=== PATIENT | female | born 1960 | race Caucasian/White ===

== ENCOUNTER 2023-07-22 20:35 | Inpatient (IN) | payer OTHER, SELFPAY ==
[2023-07-22 13:34] VITALS: BP 112/63
[2023-07-22 13:42] VITALS: BMI 28.7
--- NOTE | 2023-07-22 14:43 | ED.GENMED ---
History of Present Illness
General
Chief Complaint: Musculo-Skeletal Complaint
Source: family
Exam Limitations: dementia
Time Seen by Provider: 07/22/23 14:29
Travel History
Have you had any contact with someone who has COVID-19?: No
Do you have any symptoms of coronavirus? Fever > 100 degrees, chills, cough, shortness of breath, sore throat, loss of taste or smell, muscle aches, or headache?: No
History of Present Illness
History of Present Illness:
62-year-old female with known history of dementia presents with a gradual change in mental status with increased confusion and weakness and also appears to have left leg pain over the last 3 days. She did have a fall a week ago's. However there
was no known fall or trauma related to the recent left leg issue. Patient does not add history.
Past History
Past History
ED Past Medical History: Cancer (Breast cancer) and Other (Dementia)
ED Past Surgical History: Other (Mastectomy with implants)
Social History
Tobacco: Non-smoker
Alcohol: None
Review of Systems
Review of Systems
Unable to obtain full review of systems at this time due to: dementia
All Other Systems: Not applicable
Phy Exam
Physical Exam
Physical Exam:
GENERAL: In no distress upon entering the room. Will at times follow simple commands. However would not say her name or talk when commanded
EYE: Orbits normal.
NECK: Supple, no significant adenopathy.
ENT: Pharynx without erythema
CARDIAC: Regular rate and rhythm without any obvious murmurs.
LUNGS: Clear breath sounds,normal
ABDOMEN: Soft, without focal tenderness or distention
NEUROLOGICAL: Alert. Grossly nonfocal. Will follow simple commands
SKIN: Warm and dry, no rash or lesion, no discoloration, skin intact.
MUSCULOSKELETAL: Slight shortening of the left leg and appears to have tenderness to the leg although very difficult to localize. Seems mostly left foot. No obvious pain with hip rotation. No knee swelling no deformity no ecchymosis or abrasion.
PSYCH: Flat affect
Course
Orders/Labs/Results
Orders:
Orders
07/22/23 14:43
CT Head W/o Iv Contrast Urgent
Comment:
Reason For Exam: Mild dementia. Change in mental status
Cardiac Monitoring- Treatment ONCE
IV Insert/Care/Rem.- Treatment PRN
Straight cath- Treatment ONCE
0.9% Sodium Chloride 500 ml [Nss] 500 ml IV BOLUS
Pulse Ox/cont/shift [RESP] Stat
Quantity: 1
07/22/23 14:44
Femur, Left 2 View [CR Femur - Left Min 2 Vw] Urgent
Comment:
Reason For Exam: Nontraumatic nonlocalizing left leg pain
Foot, Left 3 View [CR Foot - Left Min 3 Views] Urgent
Comment:
Reason For Exam: Nontraumatic nonlocalizing left leg pain
Hip, Left 2-3 Views [CR Hip - LT w/wo Pel 2-3 Vw*] Urgent
Comment:
Reason For Exam: Nontraumatic nonlocalizing left leg pain
Include a pelvis x-ray?: Yes
Tibia/Fibula, Left 2 View [CR Leg Tibia/fibula Left 2 Vw] Urgent
Comment:
Reason For Exam: Nontraumatic nonlocalizing left leg pain
07/22/23 14:45
US Periph Venous LOWER Ext LT Urgent
Comment:
Reason For Exam: Nontraumatic left leg pain
07/22/23 14:46
CXR2 [CR Chest - 2 Views ] Urgent
Comment:
Reason For Exam: Recent left sided chest pain after fall
07/22/23 15:13
Basic Metabolic Panel Urgent
Complete Blood Count/With Diff Urgent
07/22/23 15:19
Urinalysis Reflex To Culture Urgent
Date Specimen was Collected: 07/22/23
Time Specimen was Collected: 15:14
Abnormal Lab Results
07/22/23 07/22/23
15:13 15:19
Neutrophils % 75.6 H %
(42.2-75.2)
Lymphocytes % 15.9 L %
(20.5-51.1)
Glucose 127 H mg/dl
(70-99)
Urine Bilirubin 1+ A
(Negative)
Urine Urobilinogen 2+ A
(Neg - 1+)
07/22/23 15:13
07/22/23 15:13
Vital Signs
Initial and Last Documented VS:
Initial Vital Signs
Temp Pulse Resp BP Pulse Ox
98.7 F 73 16 112/63 96
07/22/23 13:34 07/22/23 13:34 07/22/23 13:34 07/22/23 13:34 07/22/23 13:34
Last Documented Vital Signs
Temp Pulse Resp BP Pulse Ox
98.7 F 68 14 92/69 96
07/22/23 13:34 07/22/23 17:30 07/22/23 17:30 07/22/23 15:16 07/22/23 17:30
MDM/Problems Addressed
Differential Diagnosis Includes:
Appears to have 2 issues #1 is this gradual change in mental status. May all be related to her dementia. However I have to consider UTI electrolyte issue etc. Problem #2 is this left leg pain very difficult to localize. There is no obvious
deformity ecchymosis swelling etc. However she does seem to be in more pain when touching the foot nonetheless difficult. Also seems slightly shortened. DVT would also be considered
*Radiology
Radiology exam reviewed: preliminary read by ED provider (Negative x-rays), radiology read reviewed (neg) and other (Negative x-rays and negative left leg ultrasound)
*Pulse Oximetry
Patient hypoxic: no
*Critical Care Note
Total Time (30-74mins, 75-104mins- exclusive of procedures): Not Applicable
Update Note
Update Note:
Patient unable to ambulate. ADL issues. Clearly warrants admission for further care and possible placement issues
ED Attending Note
-
Portions of this chart may have been created with voice recognition software.� Occasional wrong word or��sound alike� substitutions may have occurred due to the inherent limitations of voice recognition software.
Discharge Plan
Departure
Patient Disposition: Admit
Date of Disposition: 07/22/23
Time of Disposition: 19:35
Presentation/result/management discussed w/ accepting MD/DO: Hospitalist
Discharge Problem:
Progressive ambulation issues, Left leg pain, Dementia
Prescriptions:
No Action
lorazepam 0.5 mg tablet
0.5 mg PO BID PRN (Reason: Anxiety) Qty: 10 0RF
Referrals:
Ziyad Benz DO [Family Provider] -
Interventions
Interventions:
*Risk Screen - Suicide Last Done: 07/22/23 13:37
*General Assessment Last Done: 07/22/23 13:37
*Neglect/Abuse Screening Last Done: 07/22/23 13:37
ED- Fall Risk Assessment Last Done: 07/22/23 13:42
*ED COVID-19 Vaccine History Last Done: 07/22/23 13:37
ED-Musculoskeletal Assessment Last Done: 07/22/23 13:37
Discharge Date and Time
Print Language: [place]
[2023-07-22] MEDS: NSS 500 IV (15:14)
[2023-07-22 15:16] VITALS: BP 92/69
[2023-07-22 15:28] LABS: Urine Albumin Negative (Neg - Trace); Urine Bilirubin 1+ (Negative); Urine Character Clear (Clear); Urine Color Yellow; Urine Glucose Negative (Negative); Urine Ketone Negative (Negative); Urine Leukocyte Negative (Negative); Urine Nitrite Negative (Negative); Urine Occult Blood Negative (Negative); Urine Urobilinogen 2+ (Neg - 1+)
[2023-07-22 15:30] LABS: % Basophils 0.8 % (0-2); % Eosinophils 0.3 % (0-6); % Immature Granulocytes 0.3 % (0-0.5); % Lymphocytes 15.9 % (20.5-51.1); % Monocytes 7.1 % (1.7-9.3); % Neutrophils 75.6 % (42.2-75.2); Absolute Basophils 0.1 10^3/uL (0-0.2); Absolute Lymphocytes 1.2 10^3/uL (1.2-3.4); Absolute Monocytes 0.6 10^3/uL (0.1-0.6); Absolute Neutrophils 5.9 10^3/uL (1.4-6.5); Hematocrit 44.4 % (37.0-47.0); Hemoglobin 14.7 g/dL (12.0-16.0); Mean Corp Hgb Conc. 33.1 g/dL (33.0-37.0); Mean Corpuscular Hgb 28.9 pg (27.0-31.0); Mean Corpuscular Volume 87.4 fL (81.0-99.0); Mean Platelet Volume 10.3 fL (7.4-10.4); Nucleated Red Blood Cells % 0 %; Platelet Count 247 10^3/uL (130-400); Red Blood Cell Count 5.08 10^6/uL (4.20-5.40); Red Cell Dist. Width 12.2 % (11.5-14.5); White Blood Cell Count 7.8 10^3/uL (4.8-10.8)
[2023-07-22 15:40] LABS: Blood Urea Nitrogen 17 mg/dl (7-17); Calcium 9.7 mg/dl (8.4-10.2); Carbon Dioxide 28 mmol/L (22-30); Chloride 102 mmol/L (98-107); Estimated Creatinine Clearance 71 ml/min; Glucose 127 mg/dl (70-99); Potassium 4.1 mmol/L (3.5-5.1); Sodium 137 mmol/L (135-145); eGFR > 60.00
[2023-07-22 18:38] VITALS: BP 104/69
[2023-07-22 19:00] VITALS: BP 121/87
--- NOTE | 2023-07-22 20:11 | HPS.HSE ---
Family Physician
-
Family Physician: Ziyad Benz
Chief Complaint
-
Change of mental status
History of Present Illness
62-year-old woman with a known history of dementia, who has had a gradual progressive change in mental status with increased confusion and weakness, and also now with left leg pain over the last 3 days. She did have a fall a week ago. There was no
known fall or trauma related to the recent left leg issue. Patient does not add history. During exam she is confused and twitches all over. She has seen a neurologist as an outpatient.
Medical History
Past Medical History
Past Medical History: Reports Other
Additional Past Medical History:
Breast cancer
Dementia
Mastectomy with implants
Past Surgical History: Reports Other
Additional Past Surgical History:
mastectomy
Social History
Unable to obtain full social history at this time due to: Dementia
Tobacco: Non-smoker
Alcohol: None
Personal:
Living: With Family
Family History
Family History: Not pertinent
Allergies / Home Medications
Allergies reflects when Allergies were last updated in [employer].
Home Medications with original date entered in [employer]
Allergy/Medication List:
Allergies
Allergy/AdvReac Type Severity Reaction Status Date / Time
Penicillins Allergy Unknown Verified 12/10/22 15:08
Home Medications
donepezil 10 mg tablet 10 mg PO HS 07/22/23
ibuprofen 200 mg tablet (Advil) 400 mg PO BIDPRN PRN mild pain 07/22/23
quetiapine 25 mg tablet 25 mg PO HS 07/22/23
sertraline 100 mg tablet 200 mg PO HS 07/22/23
Review of Systems
-
Unable to obtain full review of systems at this time due to: Dementia
History Source: Patient
Physical Exam
Vital Signs
Vital Signs
Temp Pulse Resp BP Pulse Ox
98.7 F 79 11 121/87 96
07/22/23 13:34 07/22/23 19:00 07/22/23 19:00 07/22/23 19:00 07/22/23 17:30
Physical Exam
General: Well Developed, Well Nourished, Appears in Distress and Pain
HEENT: Moist mucous membranes, Nose Appears Normal and Ears Appear Normal
Respiratory: Clear
Cardiac: S1/S2 and Regular Rhythm
GI: Soft, Non Tender and Non Distended
Musculoskeletal: No Clubbing, No Cyanosis and No Edema
Skin: Warm and Dry; No Rash or Jaundice
Neuro: Awake, Alert and Tremors; No Oriented or AO x 3
Psych: Calm and Confused
Laboratory Results
-
07/22/23 15:13
07/22/23 15:13
Data Reviewed
-
Lab Data: Labs Reviewed by me
Impression/Plan
-
IMPRESSION:
62 woman with dementia, now with progressively worsening change of mental status. No obvious explanation found in ED.
PLAN:
1. Worsening progressive change of mental status.
Observe overnight
Neuro consult in am
Regardless of cause, placement upon discharge likely needed.
Full code
VCD for DVTP
[2023-07-22 21:30] VITALS: BP 135/75; BMI 30.3
[2023-07-22 21:50] LABS: Erythrocyte Sed Rate 27 mm/hour (0-20)
[2023-07-22 23:00] VITALS: BP 94/53
[2023-07-22] MEDS: ARICEPT 10 MG PO (23:12)
[2023-07-22] MEDS: ZOLOFT 200 MG PO (23:12)
[2023-07-22] MEDS: SEROQUEL 25 MG PO (23:13)
[2023-07-22 23:21] LABS: TSH Reflex To Free T4 1.74 uIU/ml (0.47-4.68)
[2023-07-23 00:34] LABS: Folate 5.7 ng/ml (2.76-20); Vitamin B12 451 pg/ml (239-931)
--- NOTE | 2023-07-23 03:45 | PTCARENOTE ---
Pt admitted to unit from ED. Pt pulled over into bed by nursing staff. Spouse at bedside assisted with admission. AAXO1. Pt's left foot is tender to palpation. Bed alarm in place. Pt oriented to room has call woodruff in reach. Education needs
reinforcement. Plan of care ongoing.
[2023-07-23 07:33] VITALS: BP 166/71
[2023-07-23 07:56] LABS: Hematocrit 38.5 % (37.0-47.0); Hemoglobin 13.2 g/dL (12.0-16.0); Mean Corp Hgb Conc. 34.3 g/dL (33.0-37.0); Mean Corpuscular Hgb 29.5 pg (27.0-31.0); Mean Corpuscular Volume 86.1 fL (81.0-99.0); Mean Platelet Volume 10.5 fL (7.4-10.4); Platelet Count 240 10^3/uL (130-400); Red Blood Cell Count 4.47 10^6/uL (4.20-5.40); White Blood Cell Count 7.2 10^3/uL (4.8-10.8)
[2023-07-23 08:21] LABS: Blood Urea Nitrogen 14 mg/dl (7-17); Calcium 9.2 mg/dl (8.4-10.2); Carbon Dioxide 23 mmol/L (22-30); Chloride 104 mmol/L (98-107); Creatine Phosphokinase 393 U/L (30-135); Estimated Creatinine Clearance 108 ml/min; Glucose 106 mg/dl (70-99); Magnesium 2.1 mg/dl (1.6-2.3); Potassium 3.9 mmol/L (3.5-5.1); Sodium 134 mmol/L (135-145); eGFR > 60.00
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
[2023-07-23 08:48] LABS: TSH 1.72 uIU/ml (0.47-4.68)
[2023-07-23 09:07] LABS: Vitamin B12 442 pg/ml (239-931)
[2023-07-23 11:48] LABS: COVID-19 Antigen Negative (Negative)
--- NOTE | 2023-07-23 12:09 | W.PN.HOSP.TC ---
Today's Communication/Plan
-
neuro recs
f/u uric acid
pt/ot - anticipate placement
Assessment / Plan
Assessment / Plan
Physical Exam
General: Well Developed, Well Nourished, Appears in Distress and Pain
HEENT: Moist mucous membranes, Nose Appears Normal and Ears Appear Normal
Respiratory: Clear
Cardiac: S1/S2 and Regular Rhythm
GI: Soft, Non Tender and Non Distended
Musculoskeletal: No Clubbing, No Cyanosis and No Edema
Skin: Warm and Dry; No Rash or Jaundice
Neuro: Awake, Alert and Tremors; No Oriented or AO x 3
Psych: Calm and Confused
62 woman with dementia, now with progressively worsening change of mental status. No obvious explanation found in ED. Also had left leg pain - sustained fall last week; no obvious fx
PLAN:
#Worsening progressive change of mental status.
Neuro consulted
no obvious infection, regardless f/u cultures; ua, flu, covid is neg
-will need continued outpatient eval
#left leg pain
-curbsided ortho if any evidence of fx - none seen consistent with hip fx
-pain control
-PT/OT- will need placement most likely
-left toe swelling - appears to be osteophyte on cxr
-f/u uric acid
-nsaids ordered
Full code
VCD for hsq
Anticipated Discharge: Within 24 hours
Subjective/Interval History
-
Date of Service: July 23, 2023
patient confused, no acute events
Objective Data
-
Labs:
Laboratory Results
07/23/23
06:38
WBC 7.2
Hgb 13.2
Hct 38.5
Plt Count 240
Sodium 134 L
Potassium 3.9
Chloride 104
Carbon Dioxide 23
BUN 14
Creatinine 0.6
Glucose 106 H
Calcium 9.2
Vital Signs:
Vital Signs
Temp Pulse Resp BP Pulse Ox
98.7 F 75 16 166/71 98
07/23/23 07:33 07/23/23 07:33 07/23/23 07:33 07/23/23 07:33 07/23/23 07:33
Review of Systems
-
Unable to obtain full review of systems at this time due to: Acuity
History Source: Patient
All other systems: Not reviewed unless documented
Data Reviewed
-
Diagnostic Radiology: Image personally visualized and interpreted and Report Reviewed by me
Ultrasound: Report Reviewed by me
Labs: Labs Reviewed by me
[2023-07-23] MEDS: MOTRIN 400 MG PO (13:56)
[2023-07-23 15:25] VITALS: BP 104/57
[2023-07-23] MEDS: HEPARIN 5000 UNITS SC ×2 (17:42→23:19)
[2023-07-23] MEDS: ARICEPT 10 MG PO (22:03)
[2023-07-23] MEDS: SEROQUEL 25 MG PO (22:04)
[2023-07-23] MEDS: ZOLOFT 200 MG PO (22:04)
[2023-07-23 23:08] VITALS: BP 121/87
--- NOTE | 2023-07-24 05:53 | W.PN.HOSP.TC ---
Today's Communication/Plan
-
Pain Control
PT/OT
cont home sertraline Seroquel
discharge planning SNF rehab
Assessment / Plan
Assessment / Plan
Physical Exam
General: Well Developed, Well Nourished, Appears in Distress and Pain
HEENT: Moist mucous membranes, Nose Appears Normal and Ears Appear Normal
Respiratory: Clear
Cardiac: S1/S2 and Regular Rhythm
GI: Soft, Non Tender and Non Distended
Musculoskeletal: No Clubbing, No Cyanosis and No Edema
Skin: Warm and Dry; No Rash or Jaundice
Neuro: Lethargic but arousable and intermittent Tremors; not oriented
Psych: Calm Confused some visual auditory hallucinations noted (patient talking to person not present in room)
62 woman with early onset dementia, now with progressively worsening change of mental status. No obvious explanation found in ED. Also had left leg pain - sustained fall last week; no obvious fx
PLAN:
#Worsening progressive change of mental status.
#Possible worsening dementia,
#Hallucinations
Neuro consult appreciated
no obvious signs infection, CXR unremarkable
monitor off abx, follow cultures; ua neg for UTI, flu covid neg
Psych eval appreciated pt to cont with home sertraline seroquel and outpt follow up with neurologist at [facility]
#left leg pain suspect osteoarthritis
-hospitalist discussed with ortho, no evidence fx noted on imaging
-Venous Duplex neg DVT LLE
-Tibula/Fibula XR notes Calcaneal spur otherwise unremarkable exam
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
-Lt Foot XR notes mild tibiotalar osteoarthritis minimal first MTP joint osteoarthritis
-pain control
-PT/OT appreciated SNF rehab
-uric acid wnl
-NSAID prn
Full code
DVT ppx heparin
Discussed with patient's Armin at bedside.
I spent a total of 50 minutes with the patient or on the floor. More than 50% of this time involved counseling and coordination of care.
Anticipated Discharge: 24 - 48 hours
Subjective/Interval History
-
Date of Service: July 24, 2023
No acute distress appears comfortable at rest but confused hallucinating. Armin present during evaluation. Initially denies pain but seems to exhibit tenderness on lightest palpitation of lower ext's.
Objective Data
-
Labs:
Laboratory Results
07/24/23
06:00
Sodium Pending
Potassium Pending
Chloride Pending
Carbon Dioxide Pending
BUN Pending
Creatinine Pending
Glucose Pending
Calcium Pending
Vital Signs:
Vital Signs
Temp Pulse Resp BP Pulse Ox
98.5 F 80 16 121/87 94
07/23/23 23:08 07/23/23 23:08 07/23/23 23:08 07/23/23 23:08 07/23/23 23:08
[2023-07-24 07:00] VITALS: BP 125/65
[2023-07-24 08:25] LABS: Blood Urea Nitrogen 16 mg/dl (7-17); Calcium 9.3 mg/dl (8.4-10.2); Carbon Dioxide 24 mmol/L (22-30); Chloride 107 mmol/L (98-107); Estimated Creatinine Clearance 108 ml/min; Glucose 105 mg/dl (70-99); Potassium 4.1 mmol/L (3.5-5.1); Sodium 141 mmol/L (135-145); eGFR > 60.00
[2023-07-24] MEDS: HEPARIN 5000 UNITS SC ×2 (08:31→16:58)
--- NOTE | 2023-07-24 10:22 | CM ---
Chart reviewed and brief visit with Paula at bedside. She was sleeping at the time of my visit. Call placed to Paula [facility] ([phone]). Voicemail left requesting return call to discuss Paula's prior level of function and
discharge plans. Await return call.
--- NOTE | 2023-07-24 13:33 | CM ---
Referrals sent to Joe Taylor and Catarina Choudhary as requested by patient's , Armin. Await response.
--- NOTE | 2023-07-24 14:18 | CM ---
[facility] ([facility]3] does not have a dementia bed, so cannot consider for admission at this time. I have asked Meliza to reach out to Armin, Paula's , to discuss application completion. I have share the daily cost with Armin ($540/day) and he
stated 'that is not a problem'. I advised him that he may be receiving a call from [facility] ([facility]3] and also made him aware that there is currently a waiting list at [facility]3]. Additional options provided from the Medicare Compare website for
consideration.
--- NOTE | 2023-07-24 14:51 | CM ---
I met with Paula's to provide the Medicare Compare SNF ratings to help him consider other alternatives besides [facility] and [facility]. Will send additional referrals once he has had a chance to review the list and possibly tour
those that he is interested in exploring.
[2023-07-24 15:00] VITALS: BP 116/67
--- NOTE | 2023-07-24 15:52 | CS.PSYCHR ---
Consult Summary - Psychiatry
-
Pt is a 62 yo female with history of early onset dementia, most likely Alzheimer's type, who presented with recent fall and leg pain. Pt seen with dtr and , who provided history. Pt unable to give information. Pt followed by Neurologist
Catrina Cleary at the [facility]. Recent visit notes attached to Neurology consult reviewed; Sertraline was increased to 200 mg HS on 07/11 for agitation. Family does not see significant difference at this point, although twitching/jerking
limb movements may be a little worse, occurring more in the AM. Discussed possible side effects with increased Zoloft. Pt resting in bed in no distress, rambling at times with happy affect. Occasional limb twitches/mild jerks seen on exam.
Family concerned about recent fall. No agitation at present.
Psych hx: early onset of dementia, approx 2005- late 40's. Pt has had specialty evaluations, Neuropsych testing, SPECT scan, MRI, findings c/w Alzheimer's type dementia
Medications: Aricept 10 mg HS, Seroquel 25 mg HS, Sertraline 200 mg HS. Stopped Trazodone, stopped Namenda in the past
SH: lives with family
MSE: alert, makes eye contact, unable to give any information, affect inappropriate, speech irrelevant/rambling. No overt hallucinations or delusions. Occasional limb twitches/jerks. No rigidity evident
Imp: Dementia, Alzheimer's type, early onset, advanced
Rec: Would not change current medications; pt and family to follow up with [facility] Neurologist to monitor response to increased Sertraline and dosing options
Psychiatry will sign off
--- NOTE | 2023-07-24 18:24 | PTCARENOTE ---
Patient only oriented to self. Patient will spontaneously laugh and yell out at times. Patient is fearful of falling when turned and will scream & cry. Patient is easily comforted.
[2023-07-24] MEDS: ZOLOFT 200 MG PO (21:22)
[2023-07-24] MEDS: SEROQUEL 25 MG PO (21:29)
[2023-07-24] MEDS: ARICEPT 10 MG PO (21:29)
[2023-07-24 23:40] VITALS: BP 125/56
[2023-07-25] MEDS: HEPARIN 5000 UNITS SC ×4 (00:35→22:55)
--- NOTE | 2023-07-25 07:31 | W.PN.HOSP.TC ---
Addendum entered and electronically signed by Rafa Mazariegos MD 07/26/23 07:24:
patient intermittently exhibits visual auditory hallucinations talking to someone whose not there as per 's report and briefly witnessed during hospitalization
Original Note:
Today's Communication/Plan
-
Keppra 500 mg BID
PT/OT
discharge planning SNF rehab
monitor LFTs Calcium levels
Assessment / Plan
Assessment / Plan
Physical Exam
General: Well Developed, Well Nourished, Appears in Distress and Pain
HEENT: Moist mucous membranes, Nose Appears Normal and Ears Appear Normal
Respiratory: Clear
Cardiac: S1/S2 and Regular Rhythm
GI: Soft, Non Tender and Non Distended
Musculoskeletal: No Clubbing, No Cyanosis and No Edema
Skin: Warm and Dry; No Rash or Jaundice
Neuro: Lethargic but arousable and intermittent Tremors/twitching; not oriented
Psych: Calm Seems selectively mute, intermittent coherent speech conversation noted
62 woman with early onset dementia, now with progressively worsening change of mental status. No obvious explanation found in ED. Also had left leg pain - sustained fall last week; no obvious fx
PLAN:
#Worsening progressive change of mental status.
#Possible worsening dementia,
#intermittent Hallucinations
Neuro consult appreciated
no obvious signs infection, CXR unremarkable
monitor off abx, follow cultures; ua neg for UTI, flu covid neg
Psych eval appreciated pt to cont with home sertraline seroquel and outpt follow up with neurologist at [place]
#Intermittent twitching possibly d/t progression dementia
Neuro Consult appreciated, outpatient neuro correspondence/note reviewed
Following discussion with Patient's Armin, Low dose Keppra 500 mg BID started 07/24
#left leg pain suspect osteoarthritis
-hospitalist discussed with ortho, no evidence fx noted on imaging
-Venous Duplex neg DVT LLE
-Tibula/Fibula XR notes Calcaneal spur otherwise unremarkable exam
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
-Lt Foot XR notes mild tibiotalar osteoarthritis minimal first MTP joint osteoarthritis
-pain control
-PT/OT appreciated SNF rehab
-uric acid wnl
-NSAID prn
Mild LFT elevation
Mild Hypercalcemia
-will cont to monitor for now, follow up repeat lab work in AM
Full code
DVT ppx heparin
Discussed with patient's Armin
I spent a total of 55 minutes with the patient or on the floor. More than 50% of this time involved counseling and coordination of care.
Anticipated Discharge: 24 - 48 hours
Subjective/Interval History
-
Date of Service: July 25, 2023
Seen and examined at bedside. Appears comfortable resting in bed. More calm alert and interactive compared to yesterday. Occasional coherent speech. Selective mutism noted. Sister Danitza and Friend Hamida present during evaluation.
Intermittent full body twitching noted. Pain appears controlled/resolved at this time. No hallucination noted.
Objective Data
-
Labs:
Laboratory Results
07/25/23
06:00
Sodium Pending
Potassium Pending
Chloride Pending
Carbon Dioxide Pending
BUN Pending
Creatinine Pending
Glucose Pending
Calcium Pending
Total Bilirubin Pending
AST Pending
ALT Pending
Alkaline Phosphatase Pending
Vital Signs:
Vital Signs
Temp Pulse Resp BP Pulse Ox
98.5 F 74 18 125/56 95
07/24/23 23:40 07/24/23 23:40 07/24/23 23:40 07/24/23 23:40 07/24/23 23:40
I&O
07/24/23 07/25/23 07/26/23
06:59 06:59 06:59
Intake Total 120 / 120 720 / 720
Balance 120 / 120 720 / 720
[2023-07-25 07:40] VITALS: BP 120/71
--- NOTE | 2023-07-25 10:53 | CM ---
Addendum entered by Anne Hung 07/25/23 12:09:
Family in to see patient, they are hoping for [facility], requested alternate facilities if not accepted there.
Original Note:
TC from [facility].
Daughter at facility this am to discuss and complete forms.
Facility is reviewing.
Plan: Await skilled rehab, will require [place] insurance auth.
--- NOTE | 2023-07-25 11:09 | PN.CDI ---
CDI
- -
CDI:
Physician Documentation Request
Admit Date: 07/22/23 20:35
Dear Doctor Delilah,
07/23 progress note states ' worsening progressive change of mental status. Possible worsening dementia. Hallucinations'
Could you please clarify the type of hallucinations:
Auditory
Visual
Tactial
Other
Use of terms such as suspected, likely, concern for, or probable (associated with a specific diagnosis that is being evaluated, monitored, or treated as if it exists) are acceptable and can be coded in the inpatient setting, when documented at the
time of discharge.
Thank you,
Lo Castro RN, BSN
CDI Specialist
tiger text
Please use your independent medical judgment in providing your response.
[2023-07-25 11:22] LABS: ALT (SGPT) 51 U/L (0-35); AST (SGOT) 48 U/L (14-36); Albumin 4.5 g/dl (3.5-5.0); Alkaline Phosphatase 126 U/L (38-126); Blood Urea Nitrogen 18 mg/dl (7-17); Calcium 10.3 mg/dl (8.4-10.2); Carbon Dioxide 25 mmol/L (22-30); Chloride 103 mmol/L (98-107); Estimated Creatinine Clearance 108 ml/min; Glucose 101 mg/dl (70-99); Potassium 3.9 mmol/L (3.5-5.1); Sodium 141 mmol/L (135-145); Total Bilirubin 0.9 mg/dl (0.2-1.3); Total Protein 7.9 g/dl (6.3-8.2); eGFR > 60.00
[2023-07-25 15:28] VITALS: BP 109/83
[2023-07-25 15:48] VITALS: BP 109/54
[2023-07-25 15:49] VITALS: BP 109/72; PULSE 72; O2SAT 95
[2023-07-25 16:16] LABS: Iron 63 ug/dl (37-170)
[2023-07-25 16:25] LABS: Percent Saturation 24 % (20-50); Total Iron Binding Capacity 259 ug/dl (265-497)
[2023-07-25] MEDS: KEPPRA 500 MG PO (18:53)
[2023-07-25] MEDS: ARICEPT 10 MG PO (21:25)
[2023-07-25] MEDS: ZOLOFT 200 MG PO (21:25)
[2023-07-25] MEDS: SEROQUEL 25 MG PO (21:25)
[2023-07-25 23:08] VITALS: BP 143/65
--- NOTE | 2023-07-26 03:23 | DOWNTIME ---
There was a [employer] Client [employer] Downtime on 07/25/2023 from 0100 to 07/26/2023 at 0300. Downtime documentation of patient's care, including medication administrations, has been reconciled in the electronic record per guidelines. Refer to the
patient's paper chart under the miscellaneous tab to see printed paper medication records and downtime forms.
[2023-07-26 07:00] VITALS: BP 91/60
--- NOTE | 2023-07-26 07:08 | W.PN.HOSP.TC ---
Today's Communication/Plan
-
PT/OT
discharge planning snf rehab
cont keppra
Assessment / Plan
Assessment / Plan
Physical Exam
General: Well Developed, Well Nourished, Appears in Distress and Pain
HEENT: Moist mucous membranes, Nose Appears Normal and Ears Appear Normal
Respiratory: Clear
Cardiac: S1/S2 and Regular Rhythm
GI: Soft, Non Tender and Non Distended
Musculoskeletal: No Clubbing, No Cyanosis and No Edema
Skin: Warm and Dry; No Rash or Jaundice
Neuro: Lethargic but arousable and intermittent Tremors/twitching; not oriented
Psych: Calm Seems selectively mute, intermittent coherent speech conversation noted
62 woman with early onset dementia, now with progressively worsening change of mental status. No obvious explanation found in ED. Also had left leg pain - sustained fall last week; no obvious fx
PLAN:
#Worsening progressive change of mental status.
#Possible worsening dementia,
#intermittent Hallucinations
Neuro consult appreciated
no obvious signs infection, CXR unremarkable
monitor off abx, follow cultures; ua neg for UTI, flu covid neg
Psych eval appreciated pt to cont with home sertraline seroquel and outpt follow up with neurologist at [place]
#Intermittent twitching possibly d/t progression dementia
Neuro Consult appreciated, outpatient neuro correspondence/note reviewed
Following discussion with Patient's Armin, Low dose Keppra 500 mg BID started 07/24
symptom appears improved/resolved since Keppra start
#left leg pain suspect osteoarthritis
-hospitalist discussed with ortho, no evidence fx noted on imaging
-Venous Duplex neg DVT LLE
-Tibula/Fibula XR notes Calcaneal spur otherwise unremarkable exam
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
-Lt Foot XR notes mild tibiotalar osteoarthritis minimal first MTP joint osteoarthritis
-pain control
-PT/OT appreciated SNF rehab
-uric acid wnl
-NSAID prn
Mild LFT elevation
Mild Hypercalcemia
-follow up repeat lab work notes resolved
Full code
DVT ppx heparin
I spent a total of 53 minutes with the patient or on the floor. More than 50% of this time involved counseling and coordination of care.
Anticipated Discharge: 24 - 48 hours
Subjective/Interval History
-
Date of Service: July 26, 2023
Intermittent shaking appears improved/resolved following Keppra start. Exhibits selective mutism but appears more awake alert compared to prior days. No hallucinations noted.
Objective Data
-
Labs:
Laboratory Results
07/26/23
06:51
Sodium Pending
Potassium Pending
Chloride Pending
Carbon Dioxide Pending
BUN Pending
Creatinine Pending
Glucose Pending
Calcium Pending
Total Bilirubin Pending
AST Pending
ALT Pending
Alkaline Phosphatase Pending
Vital Signs:
Vital Signs
Temp Pulse Resp BP Pulse Ox
98.5 F 65 18 143/65 95
07/25/23 23:08 07/25/23 23:08 07/25/23 23:08 07/25/23 23:08 07/25/23 23:08
I&O
07/25/23 07/26/23 07/27/23
06:59 06:59 06:59
Intake Total 720 / 720 1500 / 1500
Balance 720 / 720 1500 / 1500
[2023-07-26] MEDS: KEPPRA 500 MG PO ×2 (07:31→21:07)
[2023-07-26] MEDS: HEPARIN 5000 UNITS SC ×3 (07:31→22:59)
[2023-07-26 08:18] LABS: ALT (SGPT) 39 U/L (0-35); AST (SGOT) 35 U/L (14-36); Albumin 3.5 g/dl (3.5-5.0); Alkaline Phosphatase 108 U/L (38-126); Blood Urea Nitrogen 22 mg/dl (7-17); Calcium 9.3 mg/dl (8.4-10.2); Carbon Dioxide 23 mmol/L (22-30); Chloride 106 mmol/L (98-107); Estimated Creatinine Clearance 81 ml/min; Glucose 102 mg/dl (70-99); Sodium 139 mmol/L (135-145); Total Bilirubin 0.7 mg/dl (0.2-1.3); Total Protein 6.4 g/dl (6.3-8.2); eGFR > 60.00
[2023-07-26 08:45] VITALS: BP 133/79
[2023-07-26 08:58] LABS: Potassium 4.2 mmol/L (3.5-5.1)
--- NOTE | 2023-07-26 14:10 | CM ---
TC from [facility], no beds available for a least a week.
Updated spouse and daughter Bernice via phone.
Bernice added as 2nd contact with patient spouses permission.
Additional referrals to [facility].
Bernice will be reaching out to both facilities.
Plan: skilled rehab when bed available and insurance auth obtained.
[2023-07-26 15:00] VITALS: BP 130/76
[2023-07-26] MEDS: MOTRIN 400 MG PO (15:06)
[2023-07-26] MEDS: SEROQUEL 25 MG PO (21:07)
[2023-07-26] MEDS: ARICEPT 10 MG PO (21:07)
[2023-07-26] MEDS: ZOLOFT 200 MG PO (21:07)
[2023-07-26 23:10] VITALS: BP 146/92
[2023-07-27 07:00] VITALS: BP 96/83
--- NOTE | 2023-07-27 07:16 | W.PN.HOSP.TC ---
Today's Communication/Plan
-
Tylenol 1000 mg TID pain control
cont keppra
discharge planning SNF rehab
Assessment / Plan
Assessment / Plan
Physical Exam
General: Well Developed, Well Nourished, Appears in Distress and Pain
HEENT: Moist mucous membranes, Nose Appears Normal and Ears Appear Normal
Respiratory: Clear
Cardiac: S1/S2 and Regular Rhythm
GI: Soft, Non Tender and Non Distended
Musculoskeletal: No Clubbing, No Cyanosis and No Edema
Skin: Warm and Dry; No Rash or Jaundice
Neuro: Lethargic but arousable and intermittent Tremors/twitching; not oriented
Psych: Calm Seems selectively mute, intermittent coherent speech conversation noted
62 woman with early onset dementia, now with progressively worsening change of mental status. No obvious explanation found in ED. Also had left leg pain - sustained fall last week; no obvious fx
PLAN:
#Worsening progressive change of mental status.
#Possible worsening dementia,
#intermittent Hallucinations
Neuro consult appreciated
no obvious signs infection, CXR unremarkable
monitor off abx, follow cultures; ua neg for UTI, flu covid neg
Psych eval appreciated pt to cont with home sertraline seroquel and outpt follow up with neurologist at [place]
#Intermittent twitching possibly d/t progression dementia
Neuro Consult appreciated, outpatient neuro correspondence/note reviewed
Following discussion with Patient's Armin, Low dose Keppra 500 mg BID started 07/24
symptom appears improved/resolved since Keppra start
#Arthritis
#left leg pain suspect osteoarthritis
-hospitalist discussed with ortho, no evidence fx noted on imaging
-Venous Duplex neg DVT LLE
-Tibula/Fibula XR notes Calcaneal spur otherwise unremarkable exam
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
-Lt Foot XR notes mild tibiotalar osteoarthritis minimal first MTP joint osteoarthritis
-pain control
-PT/OT appreciated SNF rehab
-uric acid wnl
-NSAID prn
-scheduled Tylenol 1000 mg TID
Mild LFT elevation
Mild Hypercalcemia
-follow up repeat lab work notes resolved
Full code
DVT ppx heparin
discussed with Patient's Armin
I spent a total of 53 minutes with the patient or on the floor. More than 50% of this time involved counseling and coordination of care.
Anticipated Discharge: 24 - 48 hours
Subjective/Interval History
-
Date of Service: July 27, 2023
No acute distress sitting up comfortably in chair. Tremors appear resolved. More alert and talkative but remains selectively mute.
Objective Data
-
Vital Signs:
Vital Signs
Temp Pulse Resp BP Pulse Ox
98.0 F 62 20 146/92 95
07/26/23 23:10 07/26/23 23:10 07/26/23 23:10 07/26/23 23:10 07/26/23 23:10
I&O
07/26/23 07/27/23 07/28/23
06:59 06:59 06:59
Intake Total 1500 / 1500 780 / 780
Balance 1500 / 1500 780 / 780
[2023-07-27] MEDS: KEPPRA 500 MG PO ×2 (08:58→21:28)
[2023-07-27] MEDS: HEPARIN 5000 UNITS SC ×2 (08:58→16:21)
[2023-07-27 09:08] VITALS: BP 118/61; O2SAT 98
--- NOTE | 2023-07-27 11:20 | CM ---
Addendum entered by Anne Hung 07/27/23 15:46:
Spoke with daughter. Again discussed caregivers, memory care usnits, and middle or intermediate school principal care.
Caregiver list provided.
Daughter still working on [facility].
Daughter had questions re hospice and asked daughter if she wanted to speak with hospice nurse, she was undecided if mom is ready for that.
Plan: skilled rehab when stable
Original Note:
Spoke with spouse bedside.
Spouse asked again if [facility] would be able to accept.
TC to [facility], no bed available. They have financials and would be willing to relook at patient if she goes somewhere else to see if they can transfer her when a bed is available.
[facility] has no beds for the foreseeable future.
Discussed alternate plans: private care givers, alternate facilities etc.
Plan: skilled rehab once bed available and auth received.
[2023-07-27] MEDS: TYLENOL 1000 MG PO ×2 (16:21→21:29)
[2023-07-27] MEDS: ZOLOFT 200 MG PO (21:29)
[2023-07-27] MEDS: SEROQUEL 25 MG PO (21:29)
[2023-07-27] MEDS: ARICEPT 10 MG PO (21:29)
[2023-07-27 23:31] VITALS: BP 132/79
[2023-07-28] MEDS: HEPARIN 5000 UNITS SC ×3 (00:07→17:02)
[2023-07-28 06:34] LABS: ALT (SGPT) 33 U/L (0-35); AST (SGOT) 33 U/L (14-36); Albumin 3.7 g/dl (3.5-5.0); Alkaline Phosphatase 105 U/L (38-126); Blood Urea Nitrogen 21 mg/dl (7-17); Calcium 9.8 mg/dl (8.4-10.2); Carbon Dioxide 23 mmol/L (22-30); Chloride 110 mmol/L (98-107); Estimated Creatinine Clearance 81 ml/min; Glucose 100 mg/dl (70-99); Potassium 4.2 mmol/L (3.5-5.1); Sodium 142 mmol/L (135-145); Total Bilirubin 0.5 mg/dl (0.2-1.3); Total Protein 6.7 g/dl (6.3-8.2); eGFR > 60.00
--- NOTE | 2023-07-28 07:20 | W.PN.HOSP.TC ---
Today's Communication/Plan
-
Medically stable for discharge pending placement
Assessment / Plan
Assessment / Plan
Physical Exam
General: Well Developed, Well Nourished, Appears in Distress and Pain
HEENT: Moist mucous membranes, Nose Appears Normal and Ears Appear Normal
Respiratory: Clear
Cardiac: S1/S2 and Regular Rhythm
GI: Soft, Non Tender and Non Distended
Musculoskeletal: No Clubbing, No Cyanosis and No Edema
Skin: Warm and Dry; No Rash or Jaundice
Neuro: Lethargic but arousable not oriented
Psych: Calm Seems selectively mute, intermittent coherent speech conversation noted
62 woman with early onset dementia, now with progressively worsening change of mental status. No obvious explanation found in ED. Also had left leg pain - sustained fall last week; no obvious fx
PLAN:
#Worsening progressive change of mental status.
#Possible worsening dementia,
#intermittent Hallucinations
Neuro consult appreciated
no obvious signs infection, CXR unremarkable
monitor off abx, follow cultures; ua neg for UTI, flu covid neg
Psych eval appreciated pt to cont with home sertraline seroquel and outpt follow up with neurologist at [place]
#Intermittent twitching possibly d/t progression dementia
Neuro Consult appreciated, outpatient neuro correspondence/note reviewed
Following discussion with Patient's Armin, Low dose Keppra 500 mg BID started 07/24
symptom appears improved/resolved since Keppra start, continuing
#Arthritis
#left leg pain suspect osteoarthritis
-hospitalist discussed with ortho, no evidence fx noted on imaging
-Venous Duplex neg DVT LLE
-Tibula/Fibula XR notes Calcaneal spur otherwise unremarkable exam
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
-Lt Foot XR notes mild tibiotalar osteoarthritis minimal first MTP joint osteoarthritis
-pain control
-PT/OT appreciated SNF rehab
-uric acid wnl
-NSAID prn
-scheduled Tylenol 1000 mg TID
Mild LFT elevation
Mild Hypercalcemia
-follow up repeat lab work notes resolved
Full code
DVT ppx heparin switched to Lovenox (fewer sticks, no significant kidney dysfunction noted this hospitalization)
Medically stable for discharge pending placement
discussed with Patient's Armin and son Armin Aguilar
I spent a total of 50 minutes with the patient or on the floor. More than 50% of this time involved counseling and coordination of care.
Anticipated Discharge: 24 - 48 hours
Subjective/Interval History
-
Date of Service: July 28, 2023
No acute distress appears comfortable at this time. tremors resolved.
Objective Data
-
Labs:
Laboratory Results
07/28/23
05:19
Sodium 142
Potassium 4.2
Chloride 110 H
Carbon Dioxide 23
BUN 21 H
Creatinine 0.8
Glucose 100 H
Calcium 9.8
Total Bilirubin 0.5
AST 33
ALT 33
Alkaline Phosphatase 105
Vital Signs:
Vital Signs
Temp Pulse Resp BP Pulse Ox
98.0 F 55 18 132/79 98
07/27/23 23:31 07/27/23 23:31 07/27/23 23:31 07/27/23 23:31 07/27/23 23:31
I&O
07/27/23 07/28/23 07/29/23
06:59 06:59 06:59
Intake Total 780 / 780 1200 / 1200
Balance 780 / 780 1200 / 1200
[2023-07-28 07:45] VITALS: BP 116/61
[2023-07-28] MEDS: TYLENOL 1000 MG PO ×2 (08:34→21:20)
[2023-07-28] MEDS: KEPPRA 500 MG PO ×2 (08:34→21:18)
[2023-07-28 15:46] VITALS: BP 112/73
[2023-07-28] MEDS: TYLENOL PO ×2 (17:01→17:12)
[2023-07-28] MEDS: ARICEPT 10 MG PO (21:19)
[2023-07-28] MEDS: ZOLOFT 200 MG PO (21:19)
[2023-07-28] MEDS: SEROQUEL 25 MG PO (21:19)
[2023-07-28 23:20] VITALS: BP 126/63
[2023-07-29 07:45] VITALS: BP 145/67
[2023-07-29] MEDS: TYLENOL 1000 MG PO ×2 (08:28→23:56)
[2023-07-29] MEDS: KEPPRA 500 MG PO ×2 (08:28→23:57)
--- NOTE | 2023-07-29 10:37 | W.PN.HOSP.TC ---
Today's Communication/Plan
-
Medically stable for discharge pending placement
Assessment / Plan
Assessment / Plan
Physical Exam
General: Well Developed, Well Nourished, Appears in Distress and Pain
HEENT: Moist mucous membranes, Nose Appears Normal and Ears Appear Normal
Respiratory: Clear
Cardiac: S1/S2 and Regular Rhythm
GI: Soft, Non Tender and Non Distended
Musculoskeletal: No Clubbing, No Cyanosis and No Edema
Skin: Warm and Dry; No Rash or Jaundice
Neuro: Lethargic but arousable not oriented
Psych: Calm Seems selectively mute, intermittent coherent speech conversation noted
62 woman with early onset dementia, now with progressively worsening change of mental status. No obvious explanation found in ED. Also had left leg pain - sustained fall last week; no obvious fx
PLAN:
#Worsening progressive change of mental status.
#Possible worsening dementia,
#intermittent Hallucinations
Neuro consult appreciated
no obvious signs infection, CXR unremarkable
monitor off abx, follow cultures; ua neg for UTI, flu covid neg
Psych eval appreciated pt to cont with home sertraline seroquel and outpt follow up with neurologist at [place]
#Intermittent twitching possibly d/t progression dementia
Neuro Consult appreciated, outpatient neuro correspondence/note reviewed
Following discussion with Patient's Armin, Low dose Keppra 500 mg BID started 07/24
symptom appears improved/resolved since Keppra start, continuing
#Arthritis
#left leg pain suspect osteoarthritis
-hospitalist discussed with ortho, no evidence fx noted on imaging
-Venous Duplex neg DVT LLE
-Tibula/Fibula XR notes Calcaneal spur otherwise unremarkable exam
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
-Lt Foot XR notes mild tibiotalar osteoarthritis minimal first MTP joint osteoarthritis
-pain control
-PT/OT appreciated SNF rehab
-uric acid wnl
-NSAID prn
-scheduled Tylenol 1000 mg TID
Mild LFT elevation
Mild Hypercalcemia
-follow up repeat lab work notes resolved
Full code
DVT ppx heparin switched to Lovenox (fewer sticks, no significant kidney dysfunction noted this hospitalization)
Medically stable for discharge pending placement
discussed with Patient's Armin and son Armin Aguilar
I spent a total of 50 minutes with the patient or on the floor. More than 50% of this time involved counseling and coordination of care.
Anticipated Discharge: 24 - 48 hours
Subjective/Interval History
-
Date of Service: July 29, 2023
Appears well. No acute distress. Comfortable
Objective Data
-
Vital Signs:
Vital Signs
Temp Pulse Resp BP Pulse Ox
97.6 F 58 20 145/67 100
07/29/23 07:45 07/29/23 07:45 07/29/23 07:45 07/29/23 07:45 07/29/23 07:45
I&O
07/28/23 07/29/23 07/30/23
06:59 06:59 06:59
Intake Total 1200 / 1200
Balance 1200 / 1200
--- NOTE | 2023-07-29 10:52 | CM ---
Bed search continues.
Referrals to [facility]
Plan: skilled rehab when bed available.
[2023-07-29 16:25] VITALS: BP 146/63
[2023-07-29] MEDS: LOVENOX 40 MG SC (17:08)
[2023-07-29] MEDS: TYLENOL PO ×2 (17:08→17:14)
[2023-07-29 23:00] VITALS: BP 126/66
[2023-07-29] MEDS: ARICEPT 10 MG PO (23:58)
[2023-07-29] MEDS: ZOLOFT 200 MG PO (23:58)
[2023-07-29] MEDS: SEROQUEL 25 MG PO (23:59)
[2023-07-30 07:00] VITALS: BP 114/71
--- NOTE | 2023-07-30 07:09 | W.PN.HOSP.TC ---
Today's Communication/Plan
-
stable for discharge pending placement
Assessment / Plan
Assessment / Plan
Physical Exam
General: Well Developed, Well Nourished, Appears in Distress and Pain
HEENT: Moist mucous membranes, Nose Appears Normal and Ears Appear Normal
Respiratory: Clear
Cardiac: S1/S2 and Regular Rhythm
GI: Soft, Non Tender and Non Distended
Musculoskeletal: No Clubbing, No Cyanosis and No Edema
Skin: Warm and Dry; No Rash or Jaundice
Neuro: Lethargic but arousable not oriented
Psych: Calm Seems selectively mute, intermittent coherent speech conversation noted
62 woman with early onset dementia, now with progressively worsening change of mental status. No obvious explanation found in ED. Also had left leg pain - sustained fall last week; no obvious fx
PLAN:
#Worsening progressive change of mental status.
#Possible worsening dementia,
#intermittent Hallucinations
Neuro consult appreciated
no obvious signs infection, CXR unremarkable
monitor off abx, follow cultures; ua neg for UTI, flu covid neg
Psych eval appreciated pt to cont with home sertraline seroquel and outpt follow up with neurologist at [place]
#Intermittent twitching possibly d/t progression dementia
Neuro Consult appreciated, outpatient neuro correspondence/note reviewed
Following discussion with Patient's Armin, Low dose Keppra 500 mg BID started 07/24
symptom appears improved/resolved since Keppra start, continuing
#Arthritis
#left leg pain suspect osteoarthritis
-hospitalist discussed with ortho, no evidence fx noted on imaging
-Venous Duplex neg DVT LLE
-Tibula/Fibula XR notes Calcaneal spur otherwise unremarkable exam
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
-Lt Foot XR notes mild tibiotalar osteoarthritis minimal first MTP joint osteoarthritis
-pain control
-PT/OT appreciated SNF rehab
-uric acid wnl
-NSAID prn
-scheduled Tylenol 1000 mg TID
Mild LFT elevation
Mild Hypercalcemia
-follow up repeat lab work notes resolved
Full code
DVT ppx heparin switched to Lovenox (fewer sticks, no significant kidney dysfunction noted this hospitalization)
Medically stable for discharge pending placement
discussed with Patient's Armin and son Armin Aguilar
I spent a total of 30 minutes with the patient or on the floor. More than 50% of this time involved counseling and coordination of care.
Anticipated Discharge: 24 - 48 hours
Subjective/Interval History
-
Date of Service: July 30, 2023
No acute distress appears comfortable at this time.
Objective Data
-
Vital Signs:
Vital Signs
Temp Pulse Resp BP Pulse Ox
98.4 F 58 20 126/66 97
07/29/23 23:00 07/29/23 23:00 07/29/23 23:00 07/29/23 23:00 07/29/23 23:00
I&O
07/29/23 07/30/23 07/31/23
06:59 06:59 06:59
Intake Total 360 / 360
Balance 360 / 360
[2023-07-30] MEDS: TYLENOL 1000 MG PO ×2 (08:20→21:30)
[2023-07-30] MEDS: KEPPRA 500 MG PO ×2 (08:20→21:31)
[2023-07-30 15:00] VITALS: BP 127/73
[2023-07-30] MEDS: TYLENOL PO (15:56)
[2023-07-30] MEDS: LOVENOX 40 MG SC (17:18)
[2023-07-30] MEDS: ZOLOFT 200 MG PO (21:30)
[2023-07-30] MEDS: ARICEPT 10 MG PO (21:31)
[2023-07-30] MEDS: SEROQUEL 25 MG PO (21:31)
[2023-07-30 23:23] VITALS: BP 119/65
--- NOTE | 2023-07-31 07:47 | W.PN.HOSP.TC ---
Today's Communication/Plan
-
stable for discharge pending placement
Assessment / Plan
Assessment / Plan
Physical Exam
General: Well Developed, Well Nourished, Appears in Distress and Pain
HEENT: Moist mucous membranes, Nose Appears Normal and Ears Appear Normal
Respiratory: Clear
Cardiac: S1/S2 and Regular Rhythm
GI: Soft, Non Tender and Non Distended
Musculoskeletal: No Clubbing, No Cyanosis and No Edema
Skin: Warm and Dry; No Rash or Jaundice
Neuro: Alert awake
Psych: Calm Seems selectively mute, intermittent coherent speech conversation noted
62 woman with early onset dementia, now with progressively worsening change of mental status. No obvious explanation found in ED. Also had left leg pain - sustained fall last week; no obvious fx
PLAN:
#Worsening progressive change of mental status.
#Possible worsening dementia,
#intermittent Hallucinations
Neuro consult appreciated
no obvious signs infection, CXR unremarkable
monitor off abx, follow cultures; ua neg for UTI, flu covid neg
Psych eval appreciated pt to cont with home sertraline seroquel and outpt follow up with neurologist at [facility]
#Intermittent twitching possibly d/t progression dementia
Neuro Consult appreciated, outpatient neuro correspondence/note reviewed
Following discussion with Patient's Armin, Low dose Keppra 500 mg BID started 07/24
symptom appears improved/resolved since Keppra start, continuing
#Arthritis
#left leg pain suspect osteoarthritis
-hospitalist discussed with ortho, no evidence fx noted on imaging
-Venous Duplex neg DVT LLE
-Tibula/Fibula XR notes Calcaneal spur otherwise unremarkable exam
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
-Lt Foot XR notes mild tibiotalar osteoarthritis minimal first MTP joint osteoarthritis
-pain control
-PT/OT appreciated SNF rehab
-uric acid wnl
-NSAID prn
-scheduled Tylenol 1000 mg TID
Mild LFT elevation
Mild Hypercalcemia
-follow up repeat lab work notes resolved
Full code
DVT ppx heparin switched to Lovenox (fewer sticks, no significant kidney dysfunction noted this hospitalization)
Medically stable for discharge pending placement
discussed with Patient's Armin and son Armin Aguilar
I spent a total of 30 minutes with the patient or on the floor. More than 50% of this time involved counseling and coordination of care.
Anticipated Discharge: 24 - 48 hours
Subjective/Interval History
-
Date of Service: July 31, 2023
No acute distress appears comfortable.
Objective Data
-
Vital Signs:
Vital Signs
Temp Pulse Resp BP Pulse Ox
99.4 F 61 18 119/65 92
07/30/23 23:23 07/30/23 23:23 07/30/23 23:23 07/30/23 23:23 07/30/23 23:23
I&O
07/30/23 07/31/23 08/01/23
06:59 06:59 06:59
Intake Total 360 / 360 340 / 340
Balance 360 / 360 340 / 340
[2023-07-31 09:07] VITALS: BP 112/76
[2023-07-31] MEDS: KEPPRA 500 MG PO (09:20)
[2023-07-31] MEDS: TYLENOL 1000 MG PO ×2 (09:21→16:26)
--- NOTE | 2023-07-31 10:31 | CM ---
Addendum entered by Anne Hung 07/31/23 15:36:
Per daughter Bernice, she received a message from George at [facility] and will reach out to them.
She also received a financial form for [facility].
She reached out to [facility], no bed available.
Plan: skilled rehab when bed available, will need [employer] auth.
Addendum entered by Anne Hung 07/31/23 15:21:
TC from [facility], unable to accept patient.
Addendum entered by Anne Hung 07/31/23 14:13:
Daughter Bernice asked for referral to be sent to [facility]
Explained to daughter [facility] is not a skilled facility and would be private pay.
TC to [facility], spoke with Steven.
Per Steven, Bernice had spoken with Jennifer and they can do a month to month, private pay for clients.
Clinicals faxed to [phone].
Addendum entered by Anne Hung 07/31/23 11:42:
[facility] financial forms presented to patients spouse.
Will fax back once completed.
Original Note:
Spoke with spouse this am, additional referral sent.
Await call back from multiple facilities.
Plan: skilled rehab when bed available.
[2023-07-31 14:35] VITALS: BP 110/57; O2SAT 95
[2023-07-31 15:38] VITALS: BP 101/63
[2023-07-31] MEDS: LOVENOX 40 MG SC (16:26)
--- NOTE | 2023-07-31 20:20 | PTCARENOTE ---
Patient refusing al scheduled PM meds. Patient educated regarding importance of medications. Patient continues to refuse and spit out the one bite of applesauce w/ meds that she did allow the nurse to give her. Will continue to monitor.
[2023-07-31] MEDS: ARICEPT PO (21:04)
[2023-07-31] MEDS: KEPPRA PO (21:04)
[2023-07-31] MEDS: ZOLOFT PO (21:04)
[2023-07-31] MEDS: TYLENOL PO (21:04)
[2023-07-31] MEDS: SEROQUEL PO (21:04)
[2023-07-31 23:36] VITALS: BP 110/60
[2023-08-01 07:53] VITALS: BP 133/81
[2023-08-01 08:00] VITALS: O2SAT 92
--- NOTE | 2023-08-01 09:02 | W.PN.HOSP.TC ---
Today's Communication/Plan
-
Discharge to short-term rehab when bed available
Assessment / Plan
Assessment / Plan
62 woman with early onset dementia, now with progressively worsening change of mental status. No obvious explanation found in ED. Also had left leg pain - sustained fall last week; no obvious fx
PLAN:
#Worsening progressive change of mental status.
#Possible worsening dementia,
#intermittent Hallucinations
Neuro consult appreciated
no obvious signs infection, CXR unremarkable
monitor off abx, follow cultures; ua neg for UTI, flu covid neg
Psych eval appreciated pt to cont with home sertraline seroquel and outpt follow up with neurologist at [facility]
#Intermittent twitching possibly d/t progression dementia
Neuro Consult appreciated, outpatient neuro correspondence/note reviewed
Following discussion with Patient's Armin, Low dose Keppra 500 mg BID started 07/24
symptom appears improved/resolved since Keppra start, continuing
#Arthritis
#left leg pain suspect osteoarthritis
-hospitalist discussed with ortho, no evidence fx noted on imaging
-Venous Duplex neg DVT LLE
-Tibula/Fibula XR notes Calcaneal spur otherwise unremarkable exam
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
-Lt Foot XR notes mild tibiotalar osteoarthritis minimal first MTP joint osteoarthritis
-pain control
-PT/OT appreciated SNF rehab
-uric acid wnl
-NSAID prn
-scheduled Tylenol 1000 mg TID
Mild LFT elevation
Mild Hypercalcemia
-follow up repeat lab work notes resolved
Full code
DVT ppx heparin switched to Lovenox (fewer sticks, no significant kidney dysfunction noted this hospitalization)
Medically stable for discharge pending placement
discussed with Patient's 07/31
Total time spent to see the patient on the floor, examine the patient, review data and lab results, discuss treatment plan with patient, nursing staff around 35 minutes.
Physical Exam
General: Well Developed, Well Nourished, Appears in Distress and Pain
HEENT: Moist mucous membranes, Nose Appears Normal and Ears Appear Normal
Respiratory: Clear
Cardiac: S1/S2 and Regular Rhythm
GI: Soft, Non Tender and Non Distended
Musculoskeletal: No Clubbing, No Cyanosis and No Edema
Skin: Warm and Dry; No Rash or Jaundice
Neuro: Alert awake
Psych: Calm Seems selectively mute, intermittent coherent speech conversation noted
Anticipated Discharge: Within 24 hours
Subjective/Interval History
-
Date of Service: August 01, 2023
No acute events. No fever, no vomiting.
Objective Data
-
Vital Signs:
Vital Signs
Temp Pulse Resp BP Pulse Ox
98 F 58 18 133/81 94
08/01/23 07:53 08/01/23 07:53 08/01/23 07:53 08/01/23 07:53 08/01/23 07:53
I&O
07/31/23 08/01/23 08/02/23
06:59 06:59 06:59
Intake Total 340 / 340 700 / 700
Balance 340 / 340 700 / 700
[2023-08-01] MEDS: KEPPRA PO (09:22)
[2023-08-01] MEDS: TYLENOL PO ×2 (09:22→17:36)
--- NOTE | 2023-08-01 15:32 | CM ---
patient was not approved at [facility].
[facility] out to evaluate, however family went to tour and have decided against [facility].
Spouse would like [facility].
[facility] should have a bed available tomorrow, will need [employer] authorization.
CM needs to call [facility] in AM re bed availability and initiate authorization.
Patient was seen by PT/OT today.
Plan: [facility] tomorrow if bed available, needs insurance authorization. Patient will need ambulance transport.
[2023-08-01 15:45] VITALS: BP 119/76
[2023-08-01] MEDS: LOVENOX 40 MG SC (17:35)
[2023-08-01] MEDS: KEPPRA 500 MG PO (19:29)
[2023-08-01] MEDS: TYLENOL 1000 MG PO (21:43)
[2023-08-01] MEDS: SEROQUEL 25 MG PO (21:43)
[2023-08-01] MEDS: ZOLOFT 200 MG PO (21:44)
[2023-08-01] MEDS: ARICEPT 10 MG PO (21:44)
[2023-08-01 23:00] VITALS: BP 127/72
[2023-08-02 07:00] VITALS: BP 111/66
--- NOTE | 2023-08-02 07:32 | W.PN.HOSP.TC ---
Today's Communication/Plan
-
Discharge today
Assessment / Plan
Assessment / Plan
62 woman with early onset dementia, now with progressively worsening change of mental status. No obvious explanation found in ED. Also had left leg pain - sustained fall last week; no obvious fx
PLAN:
#Worsening progressive change of mental status.
#Possible worsening dementia,
#intermittent Hallucinations
Neuro consult appreciated
no obvious signs infection, CXR unremarkable
monitor off abx, follow cultures; ua neg for UTI, flu covid neg
Psych eval appreciated pt to cont with home sertraline seroquel and outpt follow up with neurologist at [place]
Stable for dc to [facility] today
#Intermittent twitching possibly d/t progression dementia
Neuro Consult appreciated, outpatient neuro correspondence/note reviewed
Following discussion with Patient's Armin, Low dose Keppra 500 mg BID started 07/24
symptom appears improved/resolved since Keppra start, continue keppra upon dc
#Arthritis
#left leg pain suspect osteoarthritis
-hospitalist discussed with ortho, no evidence fx noted on imaging
-Venous Duplex neg DVT LLE
-Tibula/Fibula XR notes Calcaneal spur otherwise unremarkable exam
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
-Lt Foot XR notes mild tibiotalar osteoarthritis minimal first MTP joint osteoarthritis
-pain control
-PT/OT appreciated SNF rehab
-uric acid wnl
-NSAID prn
-scheduled Tylenol 1000 mg TID
Mild LFT elevation
Mild Hypercalcemia
-follow up repeat lab work notes resolved
Full code
DVT ppx heparin switched to Lovenox (fewer sticks, no significant kidney dysfunction noted this hospitalization)
Medically stable for discharge pending placement
discussed with Patient's 08/01
Total time spent to see the patient on the floor, examine the patient, review data and lab results, discuss treatment plan with patient, nursing staff around 35 minutes.
Physical Exam
General: Well Developed, Well Nourished, Appears in Distress and Pain
HEENT: Moist mucous membranes, Nose Appears Normal and Ears Appear Normal
Respiratory: Clear
Cardiac: S1/S2 and Regular Rhythm
GI: Soft, Non Tender and Non Distended
Musculoskeletal: No Clubbing, No Cyanosis and No Edema
Skin: Warm and Dry; No Rash or Jaundice
Neuro: Alert awake
Psych: Calm Seems selectively mute, intermittent coherent speech conversation noted
Anticipated Discharge: Today
Subjective/Interval History
-
Date of Service: August 02, 2023
No acute events. No fever, no vomiting.
Objective Data
-
Vital Signs:
Vital Signs
Temp Pulse Resp BP Pulse Ox
98.1 F 59 16 127/72 97
08/01/23 23:00 08/01/23 23:00 08/01/23 23:00 08/01/23 23:00 08/02/23 02:20
I&O
08/01/23 08/02/23 08/03/23
06:59 06:59 06:59
Intake Total 700 / 700
Balance 700 / 700
[2023-08-02] MEDS: KEPPRA PO (08:37)
[2023-08-02] MEDS: TYLENOL PO ×2 (08:38→17:10)
--- NOTE | 2023-08-02 13:02 | CM ---
Addendum entered by Isatu Cordero 08/02/23 15:05:
IMM benefit explained to spouse; form signed @ [id number]
Addendum entered by Isatu Cordero 08/02/23 14:45:
notified via phone of ambulance pear picker time
Addendum entered by Isatu Cordero 08/02/23 14:43:
Ambulance pear picker is 1700 today
Addendum entered by Isatu Cordero 08/02/23 14:27:
Patient approved 7 days skilled level 1(08/01-08/07)
Auth#[id number];
Elena @ [facility] notified
Ambulance Auth #[id number]
Original Note:
Plan: discharge to [facility] today pending [employer] AUTH approval
Report #[id number]
--- NOTE | 2023-08-02 14:52 | W.DCSUMMARY ---
Discharge Summary
Discharge Data
Date of Admission: 07/22/23
Date of Discharge: 08/02/23
-
Pending Results: No
Hospital Course
Discharge diagnosis:
Altered mental status
Dementia
Intermittent hallucinations
Myoclonic jerks/intermittent twitching, possibly due to progressive dementia
Arthritis
Mild hypercalcemia
Mildly elevated liver function test
Consults: Neurology, psychiatry
Hospital course:
62-year-old female with a past medical history of early onset dementia who was admitted for worsening altered mental status. She also has intermittent hallucinations, and twitching. She was seen in conjunction with neurology, who was able to
obtain patient's medical records from her usual neurologist. Her usual neurologist recommended starting Keppra 500 mg twice a day for myoclonic jerks. Her neurologist also recommends increasing sertraline to 200 mg for agitation, continuing
Seroquel 25 mg at bedtime, Aricept 10 mg daily.
Patient was also seen in conjunction with psychiatry, who recommends continuing the above medications.
Patient also complains of diffuse left leg pain. Pelvis x-ray shows bilateral osteoarthritis, left greater than right. X-ray of the left tibia/fibula notes calcaneal spur. Left foot x-ray shows osteoarthritis. Uric acid was normal. She was
treated with Tylenol 1 g 3 times daily, as well as NSAIDs as needed.
Patient also had mildly elevated LFTs and hypercalcemia, which normalized without any treatment.
Patient's myoclonic jerks resolved. Her mentation improved. She was seen in conjunction with PT, who recommended short-term rehab. She is medically stable for discharge to short-term rehab.
Disposition: Short-term rehab
Discharge planning: Required 34 minutes
Discharge Plan
-
Patient Disposition: Senior Care/SNF
Discharge Diagnosis/Procedures: Altered mental status, dementia, intermittent hallucinations, intermittent twitching, arthritis
Condition: Fair
Diet: Regular
Activity: As tolerated
Referrals:
Ziyad Benz, [Family Provider] - in one week
Prescriptions:
New
levetiracetam 500 mg Tablet
500 mg PO BID Qty: 0 0RF
acetaminophen [Tylenol Extra Strength] 500 mg Tablet
1,000 mg PO TID Qty: 0 0RF
Continued
quetiapine 25 mg Tablet
25 mg PO HS
donepezil 10 mg Tablet
10 mg PO HS
sertraline 100 mg Tablet
200 mg PO HS
ibuprofen [Advil] 200 mg Tablet
400 mg PO BIDPRN PRN (Reason: mild pain)
Discharge Orders:
Discharge Patient (As Directed); Ordered 08/02/23
Ordered By: Gary Fan
Discharge Date and Time
Print Language: HEBREW
[2023-08-02 15:00] VITALS: BP 109/67
--- NOTE | 2023-08-02 16:37 | PTCARENOTE ---
Assumed care of pt from previous nurse. pt denies pain. Pt oob to chair, at chairside. Call woodruff is within reach, chair alarm in place. will cont to monitor.
--- NOTE | 2023-08-02 18:26 | PTCARENOTE ---
Pt dc't do [facility] via stretcher, iv removed, belongings from room sent with .
== END 2023-08-02 18:22 | DRG 57 ==
LOC: 4 WEST ACU 20:35
PROVIDERS: Internal Medicine; ADMITTING PHYSICIAN Internal Medicine; ATTENDING PHYSICIAN Family Medicine; CONSULT PHYSICIAN Psychiatry & Neurology Neurology; EMERGENCY PHYSICIAN Emergency Medicine; FAMILY PHYSICIAN Family Medicine; OTHER PHYSICIAN Psychiatry & Neurology Psychiatry
DX: G30.0 Alzheimer's disease with early onset (principal); F02.C2 Dementia in other diseases classified elsewhere, severe, with psychotic disturbance; R44.0 Auditory hallucinations; R44.1 Visual hallucinations; G25.3 Myoclonus; E83.52 Hypercalcemia; R79.89 Other specified abnormal findings of blood chemistry; Z85.3 Personal history of malignant neoplasm of breast
CPT/HCPCS: 51701; 70450; 71046; 73502; 73552; 73590; 73630; 80048; 80053; 81003; 82550; 82607; 82746; 83540; 83550; 83735; 84443; 84550; 85025; 85027; 85652; 87040; 87502; 87811; 93971; 94760; 96360; 96361; 97116; 97163; 97167; 97530; 97535; 99285